=== PATIENT | female | born 1985 | race Asian ===

== ENCOUNTER 2021-05-16 01:29 | Inpatient (IN) | payer BC, OTHER ==
[2021-05-16] VITALS (47 sets, daily range): BP systolic 152–216; BP diastolic 80–126
[~2021-05-16] VITALS: Ht 147.3 cm; Wt 37.6 kg
--- NOTE | 2021-05-16 01:32 | NUR ---
pt bibra c/o sob since am tuesday. pt aaox4 breathing evenly and unlabored. pt attached to monitor and pox.MD at bedside. upon assessment, pt has dialysis fistula on left upper arm and rt chest. pt on 4L O2 via nc 95%. Pt goes to dialysis [facility]. pt given call light within reach.
--- NOTE | 2021-05-16 01:47 | NUR ---
blood obtained and sent to lab
[2021-05-16 01:58] LABS: HEMATOCRIT 30 % (33-45); LYMPHOCYTES # (AUTO) 1.2 K/uL (0.8-4.8); MONOCYTES # (AUTO) 0.7 K/uL (0.1-1.30); WHITE BLOOD COUNT (AUTO) 5.8 K/uL (4.3-11.0)
[2021-05-16 02:00] LABS: BASOPHILS % (AUTO) 0.7 % (0.0-2.0); EOSINOPHILS % (AUTO) 1.6 % (0.0-6.0); LYMPHOCYTES % (AUTO) 20.5 % (20.0-44.0); MEAN CORPUSCULAR HGB CONC 33 g/dl (31.0-36.0); MEAN CORPUSCULAR VOLUME 84 fL (82-100); MONOCYTES % (AUTO) 12.7 % (2.0-12.0); NEUTROPHILS # (AUTO) 3.7 K/uL (1.8-8.9); NEUTROPHILS % (AUTO) 64.5 % (43.0-81.0); PLATELET COUNT (AUTO) 256 K/uL (150-450); RED BLOOD CELL COUNT(AUTO) 3.62 MIL/uL (4.0-5.2)
[2021-05-16] MEDS ORDERED: FUROSEMIDE 40 MG/4 ML VIAL IV ONE ×2 (02:00→08:00)
[2021-05-16] MEDS ORDERED: NITROGLYCERIN 0.4 MG/TAB BOTTLE SL ONE (02:00)
--- NOTE | 2021-05-16 02:06 | NUR ---
covid swab sent
[2021-05-16] MEDS ORDERED: FUROSEMIDE 40 MG/4 ML VIAL ONE (02:08)
[2021-05-16] MEDS ORDERED: NITROGLYCERIN 0.4 MG/TAB BOTTLE ONE (02:08)
--- NOTE | 2021-05-16 02:26 | NUR ---
rt at bedside
[2021-05-16 02:29] LABS: ALANINE AMINOTRANSFERASE 37 U/L (12-78); ALBUMIN 2.8 g/dL (3.4-5.0); ALKALINE PHOSPHATASE 129 U/L (46-116); ASPARTATE AMINOTRANSFERASE 28 U/L (15-37); BILIRUBIN,DIRECT 0.1 mg/dL (0.0-0.2); BILIRUBIN,TOTAL 0.3 mg/dL (0.2-1.0); CARBON DIOXIDE 31 mmol/L (21-32); CHLORIDE 92 mmol/L (98-107); GLUCOSE 93 mg/dL (74-106); POTASSIUM 5.7 mmol/L (3.5-5.1); SODIUM SERUM 132 mmol/L (136-145); TOTAL PROTEIN, SERUM 7.9 g/dL (6.4-8.2); UREA NITROGEN, BLOOD 39 mg/dL (7-18)
[2021-05-16 02:32] LABS: CREATININE 8.5 mg/dL (0.6-1.3)
--- NOTE | 2021-05-16 02:38 | NUR ---
pcr swab sent to lab
[2021-05-16] MEDS ORDERED: ALBUTEROL FS 2.5 MG/0.5 ML VIAL.NEB ONE (02:40)
--- NOTE | 2021-05-16 02:52 | NUR ---
CARMELITA FROM [facility] WILL INITIATE DR TO
[2021-05-16] MEDS ORDERED: ALBUTEROL FS 2.5 MG/0.5 ML VIAL.NEB NEB ONE (03:00)
[2021-05-16] MEDS ORDERED: CALCIUM CHLORIDE 1,000 MG/10 ML DISP.SYRIN IV ONE (03:00)
--- NOTE | 2021-05-16 03:04 | NUR ---
DANETTE MACEDO TALKING TO YOUNG MCMILLAN DNP REGARDING PT ADMISSION.
[2021-05-16] MEDS ORDERED: CALCIUM CHLORIDE 1,000 MG/10 ML DISP.SYRIN ONE (03:40)
[2021-05-16 04:03] LABS: ABG BASE EXCESS 6.8 mmol/L; ABG OXYGEN SATURATION 98.3 % (92.0-98.5); ABG PCO2 36.9 mmHg (35.0-45.0); ABG PH 7.527 (7.350-7.450); ABG PO2 145.6 mmHg (75.0-100.0); AaDO2 24.9 mmHg; COHb 0.3 % (0.5-1.5); MetHb 0.3 % (0.0-1.5); O2Hb 97.7 % (94.0-97.0); SITE, ABG Right Radial; VENT MODE, BG ST 15/5
[2021-05-16] MEDS ORDERED: hydrALAZINE HCL IV 20 MG VIAL ONE (04:57)
[2021-05-16] MEDS ORDERED: MAGNESIUM HYDROXIDE 30 ML UDC PO PRN (05:00)
[2021-05-16] MEDS ORDERED: Z GUARD REMEDY 2 OZ OINT TP PRN (05:00)
[2021-05-16] MEDS ORDERED: ZOLPIDEM TARTRATE 5 MG TABLET PO PRN (05:00)
[2021-05-16] MEDS ORDERED: ACETAMINOPHEN 325 MG TABLET PO PRN (05:00)
[2021-05-16] MEDS ORDERED: hydrALAZINE HCL IV 20 MG VIAL IV PRN (05:00)
--- NOTE | 2021-05-16 05:04 | NUR ---
REPORT GIVEN TO MANAGEMENT ACCOUNTS MANAGER EM. WILL TRANSPORT PT VIA ACLS PROTOCOL.
[2021-05-16 05:32] LABS: CALCIUM, SERUM 11.6 mg/dL (8.5-10.1); POTASSIUM 5.7 mmol/L (3.5-5.1)
--- NOTE | 2021-05-16 05:35 | NUR ---
JEWELRY DIPPER: ADMITTED PT FROM ED FOR HF DIAGNOSIS. A/O X4, ON BIPAP WT SETTINGS ORDERED. 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 AFEBRILE. ELEVATED BP. BODY ASSESSMENT DONE WT NO SKIN BREAKDOWN. LEFT UPPER ARM AV FISTULA WT + BRUIT AND THRILL NOTED. HOB ON HIGH PAIZ'S. BED IN LOWEST POSITION AND LOCKED, BED ALARM ON, SIDE RAILS UP X2. CALL LIGHT KEPT WITHIN REACH.
--- NOTE | 2021-05-16 06:18 | NUR ---
PATIENT PLACED ON BIPAP IN ER PER M.D. WITH SETTINGS OF 15/5, RR 10, 30%. PATIENT ON SMALL ORONASAL MASK. GIVEN IN-LINE TREATMENT X1 WITH NO ADVERSE REACTIONS. PATIENT TRANSFERRED TO ICU 257. Addendum: 05/16/21 at 0620 by LETICIA CARTER RT Amended: Links added.
--- NOTE | 2021-05-16 06:45 | NUR ---
TRUCKING MANAGER: STILL NOTED WT ELEVATED BP SINCE ADMISSION. PAGED MD. AWAITING CALL BACK. ALSO NOTED WT CREATININE=9. WILL ENDORSE TO DAY SHIFT FOR CONTINUITY OF CARE.
[2021-05-16] MEDS ORDERED: NIFE-34 PO (07:56)
[2021-05-16] MEDS ORDERED: AMIT25TA9 PO (07:56)
[2021-05-16] MEDS ORDERED: SEVE800T28 PO (07:56)
[2021-05-16] MEDS ORDERED: FOLI0.8T23 PO (07:56)
[2021-05-16] MEDS ORDERED: TRAM50TA2 PO (07:56)
[2021-05-16] MEDS: HEPARIN SODIUM, PORCINE 5000 UNITS/1 ML VIAL SQ SCH ×2 (08:30→21:23)
--- NOTE | 2021-05-16 09:00 | NUR ---
ICU/RN PT IS AWAKE ,ALERT,ORIENTED.HAS SOB ,WAS ON BI-PAP.ABG DONE, PT PLACED ON 4 L N/C .HAS ESRD ON HD .EMERGENCY HD STARTED ORDERED.HAS LEFT UPPER ARM NEW HD FISTULA AND RIGHT CHEST HD CATH.HAS HIGH BP 190/100.,AFEBRILE.NO PAIN REPORTED AT THIS TIME. SKIN INTACT.LABS REVIEW.MD AWARE. DUE MEDS ARE GIVEN ORDERED.
--- NOTE | 2021-05-16 12:00 | NUR ---
ICU/RN HD IS OVER .1.5L OUTPUT.PT TOLERATED WELL
--- NOTE | 2021-05-16 16:00 | NUR ---
ICU/RN BP 202/108. APRESOLINE 20 MG IV GIVEN.PM CARE PROVIDED.CONTINUE MONITORING
[2021-05-16] MEDS: hydrALAZINE HCL IV 20 MG VIAL IV PRN ×2 (16:01→21:20)
[2021-05-16] MEDS: TRAMADOL HCL 50 MG TABLET PO PRN (17:13)
--- NOTE | 2021-05-16 17:15 | NUR ---
ICU/RN PT C/O OF NECK PAIN TRAMADOL PO GIVEN ORDERED. CONTINUE MONITORING
[2021-05-16] MEDS: ONDANSETRON HCL/PF 4 MG/2 ML VIAL IVP PRN (18:38)
--- NOTE | 2021-05-16 18:39 | NUR ---
ICU/RN PT IS VOMITING.ZOFRAN IV GIVEN ORDERED.
[2021-05-16] MEDS: AMITRIPTYLINE HCL 25 MG TABLET PO SCH (21:20)
--- NOTE | 2021-05-16 22:21 | NUR ---
patient awake alert has 02 on 3 liters npo sinus tact on monitor 102 heart rate. temp 98.3 has two 20 ga in right arm both good no c/o of pain no head pain b/p 183/103 patient given apresoline 20 mg ivp at 2120 now at 2220 b/p161/80.patient has a right upper chest perma cath. had dialysis today 1.5 liters out.
[2021-05-17] VITALS (33 sets, daily range): BP systolic 134–182; BP diastolic 80–103
[2021-05-17] MEDS: hydrALAZINE HCL IV 20 MG VIAL IV PRN (04:33)
--- NOTE | 2021-05-17 04:44 | NUR ---
b/p 177 /99 given apresoline 20mg ivp 0433.
[2021-05-17 05:31] LABS: BASOPHILS % (AUTO) 0.4 % (0.0-2.0); EOSINOPHILS % (AUTO) 1.2 % (0.0-6.0); HEMATOCRIT 28 % (33-45); HEMOGLOBIN 9.5 g/dL (11.5-14.8); LYMPHOCYTES # (AUTO) 0.7 K/uL (0.8-4.8); LYMPHOCYTES % (AUTO) 11.5 % (20.0-44.0); MEAN CORPUSCULAR HGB CONC 34 g/dl (31.0-36.0); MEAN CORPUSCULAR VOLUME 85 fL (82-100); MONOCYTES # (AUTO) 0.8 K/uL (0.1-1.30); MONOCYTES % (AUTO) 12.4 % (2.0-12.0); NEUTROPHILS # (AUTO) 4.6 K/uL (1.8-8.9); NEUTROPHILS % (AUTO) 74.5 % (43.0-81.0); PLATELET COUNT (AUTO) 264 K/uL (150-450); RED BLOOD CELL COUNT(AUTO) 3.29 MIL/uL (4.0-5.2); WHITE BLOOD COUNT (AUTO) 6.2 K/uL (4.3-11.0)
[2021-05-17 05:44] LABS: CALCIUM, SERUM 9.9 mg/dL (8.5-10.1); CREATININE 7.3 mg/dL (0.6-1.3); MAGNESIUM 2.7 mg/dL (1.8-2.4); PHOSPHORUS 5.9 mg/dL (2.5-4.9); POTASSIUM 5.6 mmol/L (3.5-5.1)
--- NOTE | 2021-05-17 08:00 | NUR ---
RN NOTES RECEIVED PATIENT IN THE BED A/O X3, ON O2-3LNC. NO ACUTE RESPIRATORY DISTRESS, PATIENT NOTED UNABLE TO EAT BREAKFAST BECAUSE DOES NOT LIKE HOSPITAL FOOD. DUE MEDICATION ADMINISTERED, BP 174/99, P-113 . PATIENT HAS PERMCATH ON RIGHT UPPER CHEST INTACT, AND OLD AV SHUNT ON TRAM FISTULA INTACT. PATIENT ANURIC, ABLE TO REPOSTION SELF IN THE BED. RIGHT AC IV ACCESS INTACT. PATIENT REFUSED PAIN. CALL LIGHT WITHIN TO REACH. WILL MONITORING.
[2021-05-17] MEDS: VIT B CMPLX 3/FA/VIT C/BIOTIN 1 TAB TABLET PO SCH (08:05)
[2021-05-17] MEDS: NIFEdipine XL (30MG) 30 MG TAB PO SCH (08:05)
[2021-05-17] MEDS: hydrALAZINE HCL 50 MG TABLET PO SCH ×3 (08:05→16:35)
[2021-05-17] MEDS: HEPARIN SODIUM, PORCINE 5000 UNITS/1 ML VIAL SQ SCH ×2 (08:06→23:33)
[2021-05-17] MEDS: CLONIDINE HCL 0.1 MG TABLET PO PRN (09:59)
--- NOTE | 2021-05-17 09:59 | NUR ---
rn notes administered clonidine 0.1 mg po prn for bp 174/92, p- 113. will monitoring.
[2021-05-17] MEDS: TRAMADOL HCL 50 MG TABLET PO PRN (11:32)
--- NOTE | 2021-05-17 11:32 | NUR ---
RN NOTES ADMINITERED TRAMADOL 50 MG PO PRN FOR LOWER BACK PAIN 03/26 PER PATIENT REQUEST, BP 162/80, P-96.
--- NOTE | 2021-05-17 12:36 | NUR ---
RN NOTES MEDICATION WERE ADMINISTERED FOR PAIN EFFECTIVE, BP 158/86, P-95, R-18. WILL MONITORING.
[2021-05-17] MEDS: ONDANSETRON HCL/PF 4 MG/2 ML VIAL IVP PRN (14:29)
--- NOTE | 2021-05-17 14:29 | NUR ---
rn notes administered Zofran 4 mg iv push for nausea.
[2021-05-17] MEDS: NEPRO VAN 237 ML CAN PO SCH (16:35)
--- NOTE | 2021-05-17 16:56 | NUR ---
rn notes patient stable,medication were administered for nausea effective, scheduled medication administered, pm care done. patient will transfer to the TELE unit room 120. report given TIM Gilliam follow plan of care. patient next to the bed.
--- NOTE | 2021-05-17 18:35 | NUR ---
RN notes patient transferred to Tele Rm 120-A, patient A/o x4, able to make needs known, on oxygen 3lpm via nc, no signs of distress noted, VSS, IV access intact and patent, safety measures inititated, bed in lowest locked position with side rails up x2, call light within reach, will endorse to cage shift manager nurse for christiano.
--- NOTE | 2021-05-17 20:01 | NUR ---
DAVID/FUR STORAGE CLERK RECIEVED REPORT FROM DAY NURSE. SEE FLOWSHEET FOR ASSESSMENT, ALSO FOR SKIN ISSUES THAT PT MAY HAVE WHICH ARE ADDRESSED HERE ALONG WITH THE INTERVENTIONS FOR EACH. CALL LIGHT WITHIN REACH
[2021-05-17] MEDS ORDERED: AMITRIPTYLINE HCL 25 MG TABLET ONE (23:08)
[2021-05-17] MEDS: AMITRIPTYLINE HCL 25 MG TABLET PO SCH (23:36)
[2021-05-18] VITALS: BP 149/85
--- NOTE | 2021-05-18 00:05 | NUR ---
DAVID/CASINO CAGE SUPERVISOR HD WAS COMPLETED, TOOK OFF 1.5 LITERS.
[2021-05-18 04:00] VITALS: BP 171/97
[2021-05-18] MEDS: CLONIDINE HCL 0.1 MG TABLET PO PRN ×2 (05:07→12:38)
--- NOTE | 2021-05-18 05:43 | NUR ---
DAVID/ERP PROJECT MANAGER CATAPRES 0.1 WAS GIVEN FOR SBP 171/97. WILL CONTINUE TO MONITOR THIS PT AND HER BP.
[2021-05-18] MEDS: hydrALAZINE HCL IV 20 MG VIAL IV PRN (05:59)
--- NOTE | 2021-05-18 06:38 | NUR ---
DAVID/DIGITAL ACCOUNT COORDINATOR AFTER CATAPRES 0.1 WAS GIVEN SBP IS 175/86 WITH HEART RATE 100, APRESOLINE IVP WAS GIVEN FOR THIS BY RN. WILL CONTINUE TO MONITOR THIS PT.
--- NOTE | 2021-05-18 06:51 | NUR ---
DAVID/MARKETING ANALYST RECHECK OF BLOOD PRESSURE WAS 167/81, WILL PASS ON TO DAY NURSE TO MONITOR THIS PT'S BLOOD PRESSURE.
[2021-05-18 07:56] LABS: CALCIUM, SERUM 10.1 mg/dL (8.5-10.1)
[2021-05-18 08:00] VITALS: BP 166/96
[2021-05-18 08:29] LABS: BASOPHILS % (AUTO) 0.4 % (0.0-2.0); EOSINOPHILS % (AUTO) 0.8 % (0.0-6.0); HEMATOCRIT 27 % (33-45); HEMOGLOBIN 9.1 g/dL (11.5-14.8); LYMPHOCYTES # (AUTO) 0.6 K/uL (0.8-4.8); LYMPHOCYTES % (AUTO) 12.1 % (20.0-44.0); MEAN CORPUSCULAR HGB CONC 33 g/dl (31.0-36.0); MEAN CORPUSCULAR VOLUME 86 fL (82-100); MONOCYTES # (AUTO) 0.7 K/uL (0.1-1.30); MONOCYTES % (AUTO) 12.7 % (2.0-12.0); NEUTROPHILS # (AUTO) 3.8 K/uL (1.8-8.9); PLATELET COUNT (AUTO) 279 K/uL (150-450); RED BLOOD CELL COUNT(AUTO) 3.18 MIL/uL (4.0-5.2); WHITE BLOOD COUNT (AUTO) 5.2 K/uL (4.3-11.0)
[2021-05-18] MEDS: VIT B CMPLX 3/FA/VIT C/BIOTIN 1 TAB TABLET PO SCH (09:06)
[2021-05-18] MEDS: NIFEdipine XL (30MG) 30 MG TAB PO SCH (09:10)
[2021-05-18] MEDS: hydrALAZINE HCL 50 MG TABLET PO SCH ×2 (09:11→13:36)
[2021-05-18] MEDS: HEPARIN SODIUM, PORCINE 5000 UNITS/1 ML VIAL SQ SCH (09:13)
[2021-05-18] MEDS: NEPRO VAN 237 ML CAN PO SCH ×2 (09:14→12:05)
--- NOTE | 2021-05-18 09:30 | NUR ---
PREMISES TECHNICIAN AM NOTES RECEIVED PT IN BED, AAOX X3, KHMER SPEAKING, ON 3L O2 VIA NC, NO SOB, NO DISTRESS, RESPIRATION UNLABORED, SINUS RHYTHM HR 94. DENIES CHEST PAIN/DISCOMFORT, WITH RIGHT AC 20 AND RFA G20 BOTH FLUSHES WELL, SITE CLEAR. WITH RCW HD CATH, CDI DRESSING. ALSO WITH TRAM AV FISTULA, NOT YET USED FOR HD. THRILL PRESENT. ON 2 GM SODIUM DIET. INTACT SKIN, BRP. SAFETY MEASURES IN PLACE, BED LOW LOCKED, SR UP X 2, CALL LIGHT WITHIN REACH, WILL CONT TO MONITOR. Addendum: 05/18/21 at 1403 by JANICE GOMES RN CORRECTION: tIME SHOULD BE 0730
--- NOTE | 2021-05-18 09:30 | NUR ---
RN NOTES ALL DUE MEDS GIVEN.
[2021-05-18] MEDS ORDERED: HYDR-4077 PO (10:32)
[2021-05-18] MEDS ORDERED: NIFE-34 PO (10:32)
[2021-05-18 12:00] VITALS: BP 151/91
[2021-05-18] MEDS ORDERED: MORPHINE SULFATE INJ 2 MG/ML DISP.SYRIN IV PRN (13:00)
[2021-05-18 13:36] VITALS: BP 168/95
--- NOTE | 2021-05-18 13:56 | NUR ---
RN NOTES PATIENT WAS SEEN BY DR. WELCH AND DR. LOMBARDI TODAY WITH ORDER FOR DISCHARGE TO HOME. MD AWARE BP 151/91. DC INSTRUCTIONS AND EDUCATION PROVIDED TO PATIENT, FORM AND BELONGING LISTS SIGNED BY PATIENT. ALL BE LONGINGS ACCOUNTED FOR. NAME,ARMBAND, IV LINE REMOVED, MEDICATION RECONCILED AND UPDATED WITH PREFERRED PHARMACY. PT WAS ACCOMPANIED TO THE LOBBY BY RN. AMBULATORY WITH STEADY GAIT. PATIENT PICKED UP BY SON VIA PRIVATE CAR. CHARGE NURSE AND MD AWARE OF DISCHARGE.
[2021-05-19] MEDS ORDERED: NIFEdipine XL (30MG) 30 MG TAB PO SCH (09:00)
== END 2021-05-18 14:14 | disposition home or self-care (01) | DRG 291 ==
LOC: ER 01:33 → ICU 03:49 → TELE1 05-17 18:10
PROVIDERS: ADMIT Internal Medicine; ATTEND Internal Medicine
PROC: 5A09357 Assistance with Respiratory Ventilation, Less than 24 Consecutive Hours, Continuous Positive Airway Pressure (ICD-10-PCS; principal; 2021-05-16)
PROC: 5A1D70Z Performance of Urinary Filtration, Intermittent, Less than 6 Hours Per Day (ICD-10-PCS; 2021-05-16)
DX: I13.2 Hypertensive heart and chronic kidney disease with heart failure and with stage 5 chronic kidney disease, or end stage renal disease (principal); J96.01 Acute respiratory failure with hypoxia; N18.6 End stage renal disease; I50.43 Acute on chronic combined systolic (congestive) and diastolic (congestive) heart failure; G93.41 Metabolic encephalopathy; I16.1 Hypertensive emergency; E87.1 Hypo-osmolality and hyponatremia; I31.3 Pericardial effusion (noninflammatory); Z99.2 Dependence on renal dialysis; E87.5 Hyperkalemia; D64.9 Anemia, unspecified; G62.9 Polyneuropathy, unspecified; I70.0 Atherosclerosis of aorta
CPT/HCPCS: 36415; 36600; 71045-TC; 80048-TC; 80061-TC; 80076-TC; 82803-TC; 83605-TC; 83735-TC; 83880; 84100-TC; 84484-TC; 85025-TC; 85730-TC; 86704; 86706; 87040-TC; 87081-TC; 87340; 90935-TC; 93307-TC; C9803; G0378; J0360; J1644; J1940; J2405; J3490; U0003